=== PATIENT | male | born 1955 | race Caucasian/White ===

== ENCOUNTER 2022-05-18 13:57 | Observation (INO) | payer OTHER ==
--- NOTE | 2022-05-18 14:15 | ED ---
General Adult HPI - General Chief complaint: Shortness of Breath Stated complaint: pneumonia Time Seen by Provider: 05/18/22 14:06 Source: patient, family, RN notes reviewed Mode of arrival: ambulatory Limitations: no limitations - History of Present Illness Initial comments: Patient is a pleasant 66-year-old male presenting to the emergency Department with cough and dyspnea. Symptoms have been present close to 2 weeks. Patient did have 2 chest x-rays done as an outpatient showing pneumonia. Patient has been on 2 antibiotics. Patient has been fatigued and sweaty. No sinus congestion. No chest pain. No leg pain or leg swelling. - Related Data Allergies Allergy/AdvReac Type Severity Reaction Status Date / Time No Known Allergies Allergy Verified 05/18/22 14:02 Review of Systems ROS Statement: Those systems with pertinent positive or pertinent negative responses have been documented in the HPI. ROS Other: All systems not noted in ROS Statement are negative. Constitutional: Reports: chills. Denies: fever Eyes: Denies: eye pain ENT: Denies: ear pain Respiratory: Reports: as per HPI, cough, dyspnea Cardiovascular: Denies: chest pain Endocrine: Reports: fatigue Gastrointestinal: Denies: abdominal pain Genitourinary: Denies: dysuria Musculoskeletal: Denies: arthralgia Skin: Denies: rash Neurological: Denies: weakness Past Medical History Past Medical History: No Reported History History of Any Multi-Drug Resistant Organisms: None Reported Past Surgical History: Appendectomy, Tonsillectomy Past Psychological History: No Psychological Hx Reported Smoking Status: Current every day smoker Past Alcohol Use History: Rare Past Drug Use History: None Reported General Exam Limitations: no limitations General appearance: alert, in no apparent distress Head exam: Present: normocephalic Eye exam: Present: normal appearance Neck exam: Present: normal inspection Respiratory exam: Present: normal lung sounds bilaterally Cardiovascular Exam: Present: regular rate, normal rhythm GI/Abdominal exam: Present: soft. Absent: tenderness Extremities exam: Present: normal inspection. Absent: pedal edema, calf tenderness Neurological exam: Present: alert Psychiatric exam: Present: normal affect, normal mood Skin exam: Present: normal color Course Vital Signs 05/18/22 05/18/22 13:58 15:11 Temperature 97.9 F 98.1 F Pulse Rate 88 72 Respiratory 18 20 Rate Blood Pressure 127/72 122/72 O2 Sat by Pulse 97 97 Oximetry EKG Findings - EKG Results: EKG: interpreted by ERMD, sinus rhythm, normal axis, normal QRS, normal ST/T Medical Decision Making - Medical Decision Making Patient reevaluated and updated. Case discussed with Dr. Haas, who will admit covering hospital call. CT will be obtained. - Lab Data Result diagrams: 05/18/22 14:57 05/18/22 14:57 Lab Results 05/18/22 05/18/22 05/18/22 Range/Units 14:57 14:57 14:57 WBC 9.0 (3.8-10.6) k/uL RBC 4.34 (4.30-5.90) m/uL Hgb 13.3 (13.0-17.5) gm/dL Hct 41.5 (39.0-53.0) % MCV 95.6 (80.0-100.0) fL MCH 30.5 (25.0-35.0) pg MCHC 31.9 (31.0-37.0) g/dL RDW 12.3 (11.5-15.5) % Plt Count 388 (150-450) k/uL MPV 7.8 Neutrophils % 66 % Lymphocytes % 21 % Monocytes % 9 % Eosinophils % 2 % Basophils % 1 % Neutrophils # 5.9 (1.3-7.7) k/uL Lymphocytes # 1.9 (1.0-4.8) k/uL Monocytes # 0.8 (0-1.0) k/uL Eosinophils # 0.2 (0-0.7) k/uL Basophils # 0.1 (0-0.2) k/uL PT 11.3 (9.0-12.0) sec INR 1.1 (<1.2) APTT 25.5 (22.0-30.0) sec D-Dimer 2.32 H (<0.60) mg/L FEU Sodium 138 (137-145) mmol/L Potassium 4.3 (3.5-5.1) mmol/L Chloride 102 (98-107) mmol/L Carbon Dioxide 29 (22-30) mmol/L Anion Gap 7 mmol/L BUN 17 (9-20) mg/dL Creatinine 0.67 (0.66-1.25) mg/dL Est GFR (CKD-EPI)AfAm >90 (>60 ml/min/1.73 sqM) Est GFR (CKD-EPI)NonAf >90 (>60 ml/min/1.73 sqM) Glucose 100 H (74-99) mg/dL Plasma Lactic Acid [place] (0.7-2.0) mmol/L Calcium 9.8 (8.4-10.2) mg/dL Total Bilirubin 0.8 (0.2-1.3) mg/dL AST 21 (17-59) U/L ALT 18 (4-49) U/L Alkaline Phosphatase 92 (38-126) U/L Troponin I (0.000-0.034) ng/mL NT-Pro-B Natriuret Pep pg/mL Total Protein 7.0 (6.3-8.2) g/dL Albumin 3.8 (3.5-5.0) g/dL 05/18/22 05/18/22 05/18/22 Range/Units 14:57 14:57 14:57 WBC (3.8-10.6) k/uL RBC (4.30-5.90) m/uL Hgb (13.0-17.5) gm/dL Hct (39.0-53.0) % MCV (80.0-100.0) fL MCH (25.0-35.0) pg MCHC (31.0-37.0) g/dL RDW (11.5-15.5) % Plt Count (150-450) k/uL MPV Neutrophils % % Lymphocytes % % Monocytes % % Eosinophils % % Basophils % % Neutrophils # (1.3-7.7) k/uL Lymphocytes # (1.0-4.8) k/uL Monocytes # (0-1.0) k/uL Eosinophils # (0-0.7) k/uL Basophils # (0-0.2) k/uL PT (9.0-12.0) sec INR (<1.2) APTT (22.0-30.0) sec D-Dimer (<0.60) mg/L FEU Sodium (137-145) mmol/L Potassium (3.5-5.1) mmol/L Chloride (98-107) mmol/L Carbon Dioxide (22-30) mmol/L Anion Gap mmol/L BUN (9-20) mg/dL Creatinine (0.66-1.25) mg/dL Est GFR (CKD-EPI)AfAm (>60 ml/min/1.73 sqM) Est GFR (CKD-EPI)NonAf (>60 ml/min/1.73 sqM) Glucose (74-99) mg/dL Plasma Lactic Acid [place] 1.0 (0.7-2.0) mmol/L Calcium (8.4-10.2) mg/dL Total Bilirubin (0.2-1.3) mg/dL AST (17-59) U/L ALT (4-49) U/L Alkaline Phosphatase (38-126) U/L Troponin I <0.012 (0.000-0.034) ng/mL NT-Pro-B Natriuret Pep 42 pg/mL Total Protein (6.3-8.2) g/dL Albumin (3.5-5.0) g/dL - Radiology Data Interpreted by me: Chest x-ray shows persistent right lower lobe infiltrate. Previous x-rays reviewed with similar findings Disposition Clinical Impression: Pneumonia Disposition: ADMITTED IP TO THIS HOSP Is patient prescribed a controlled substance at d/c from ED?: No Referrals: Jose Hodge PAC [REFERRING] - 1-2 days Time of Disposition: 15:52
[2022-05-18 15:01] LABS: Basophils # (A) 0.1 k/uL (0-0.2); Basophils % (A) 1 %; Eosinophils # (A) 0.2 k/uL (0-0.7); Eosinophils % (A) 2 %; HCT 41.5 % (39.0-53.0); HGB 13.3 gm/dL (13.0-17.5); Lymphocytes # (A) 1.9 k/uL (1.0-4.8); Lymphocytes % (A) 21 %; MCH 30.5 pg (25.0-35.0); MCHC 31.9 g/dL (31.0-37.0); MCV 95.6 fL (80.0-100.0); Mean Platelet Volume 7.8; Monocytes # (A) 0.8 k/uL (0-1.0); Monocytes % (A) 9 %; Neutrophils # (A) 5.9 k/uL (1.3-7.7); Neutrophils % (A) 66 %; Platelet Count 388 k/uL (150-450); RBC 4.34 m/uL (4.30-5.90); RDW 12.3 % (11.5-15.5)
[2022-05-18 15:12] LABS: ALT 18 U/L (4-49); AST 21 U/L (17-59); African American GFR (CKD) >90 (>60 ml/min/1.73 sqM); Albumin 3.8 g/dL (3.5-5.0); Alkaline Phosphatase 92 U/L (38-126); Anion Gap 7 mmol/L; Blood Urea Nitrogen 17 mg/dL (9-20); Calcium 9.8 mg/dL (8.4-10.2); Carbon Dioxide 29 mmol/L (22-30); Chloride 102 mmol/L (98-107); Glucose 100 mg/dL (74-99); Non-African American GFR(CKD) >90 (>60 ml/min/1.73 sqM); Potassium 4.3 mmol/L (3.5-5.1); Sodium 138 mmol/L (137-145); Total Bilirubin 0.8 mg/dL (0.2-1.3)
[2022-05-18 15:19] LABS: INR 1.1 (<1.2); Partial Thromboplastin Time 25.5 sec (22.0-30.0); Prothrombin Time 11.3 sec (9.0-12.0)
--- NOTE | 2022-05-18 15:21 | XR ---
EXAMINATION TYPE: XR chest 2V DATE OF EXAM: 05/18/2022 COMPARISON: NONE HISTORY: Shortness of breath TECHNIQUE: Frontal and lateral views of the chest are obtained. FINDINGS: Scattered senescent parenchymal changes noted. Hyperinflation compatible with COPD. Infiltrate right lower lobe with small effusion. Correlate for pneumonia. Heart size is stable. Mediastinal structures are stable and grossly unremarkable. No evidence for hilar prominence. Degenerative changes dorsal spine. IMPRESSION: 1. Infiltrate right lower lobe with small effusion. Correlate for pneumonia.
[2022-05-18] MEDS ORDERED: IPRATROPIUM-ALBUTEROL 3 ML NEB INHALATION PRN (15:52)
[2022-05-18] MEDS ORDERED: PNEUMONIA PROTOCOL UTILIZED 1 EACH MISC PO PRN (15:52)
[2022-05-18] MEDS ORDERED: AZITHROMYCIN 500 MG in SODIUM CHLORIDE 0.9% 250 ML IVPB STA (15:52)
[2022-05-18] MEDS: SODIUM CHLORIDE 0.9% 1,000 ML IV SCH (16:27)
--- NOTE | 2022-05-18 16:40 | P.HPIM ---
History of Present Illness 66-year-old male came to emergency department with complaints of cough without any significant sputum production shortness of breath and right-sided pleuritic chest pain. Patient the was diagnosed with chest x-ray with pneumonia few days ago and patient was initially on azithromycin followed by Augmentin without any symptomatic improvement repeat chest x-ray showed worsening because of which patient is being admitted was started on Rocephin and azithromycin. Sputum cultures and blood cultures were ordered. Patient had elevated d-dimer may be related to pneumonia but CT angio of the chest was ordered which is still pending. REVIEW OF SYSTEMS: CONSTITUTIONAL: No fever, no malaise, no fatigue. HEENT: No recent visual problems or hearing problems. Denied any sore throat. CARDIOVASCULAR: Noorthopnea, PND, no palpitations, no syncope. PULMONARY: no hemoptysis. GASTROINTESTINAL: No diarrhea, no nausea, no vomiting, no abdominal pain. NEUROLOGICAL: No headaches, no weakness, no numbness. HEMATOLOGICAL: Denies any bleeding or petechiae. GENITOURINARY: Denies any burning micturition, frequency, or urgency. MUSCULOSKELETAL/RHEUMATOLOGICAL: Denies any joint pain, swelling, or any muscle pain. ENDOCRINE: Denies any polyuria or polydipsia. The rest of the 14-point review of systems is negative. PHYSICAL EXAMINATION: GENERAL: The patient is alert and oriented x3, not in any acute distress. Well developed, well nourished. HEENT: Pupils are round and equally reacting to light. EOMI. No scleral icterus. No conjunctival pallor. Normocephalic, atraumatic. No pharyngeal erythema. No thyromegaly. CARDIOVASCULAR: S1 and S2 present. No murmurs, rubs, or gallops. PULMONARY: Good air entry into bilateral lung olivares, no wheezing or crackles. Patient does have bronchophony on the right lower posterior lung olivares ABDOMEN: Soft, nontender, nondistended, normoactive bowel sounds. No palpable organomegaly. MUSCULOSKELETAL: No joint swelling or deformity. EXTREMITIES: No cyanosis, clubbing, or pedal edema. NEUROLOGICAL: Gross neurological examination did not reveal any focal deficits. SKIN: No rashes. Assessment and plan -Right lower lobe pneumonia with possible parapneumonic effusion and pleuritic chest pain: We will rule out pulmonary embolism with a CT, patient's antibiotics will be continued patient will be continued on Rocephin patient the will be started on doxycycline and discontinue azithromycin. Patient already failed on azithromycin in the past and doxycycline will be helpful if patient has post viral pneumonia along with atypical pneumonias -Nicotine use patient smokes half a pack of cigarettes a day counseling was provided DVT prophylaxis: Early ambulation Past Medical History Past Medical History: No Reported History History of Any Multi-Drug Resistant Organisms: None Reported Past Surgical History: Appendectomy, Tonsillectomy Past Psychological History: No Psychological Hx Reported Smoking Status: Current every day smoker Past Alcohol Use History: Rare Past Drug Use History: None Reported Medications and Allergies Home Medications Medication Instructions Recorded Confirmed Type Amoxic-Pot Clav 875-125Mg 1 tab PO BID 05/18/22 05/18/22 History [Augmentin 875-125] Azithromycin [Zithromax Z Pack] See Taper PO DAILY 05/18/22 05/18/22 History Allergies Allergy/AdvReac Type Severity Reaction Status Date / Time No Known Allergies Allergy Verified 05/18/22 16:07 Physical Exam Vitals: Vital Signs Temp Pulse Resp BP Pulse Ox 05/18/22 16:25 97.6 F 79 20 133/72 97 05/18/22 15:11 98.1 F 72 20 122/72 97 05/18/22 13:58 97.9 F 88 18 127/72 97 Intake and Output 05/18/22 05/18/22 05/18/22 06:59 14:59 22:59 Other: Weight 76.204 kg Results CBC & Chem 7: 05/18/22 14:57 05/18/22 14:57 Labs: Abnormal Lab Results - Last 24 Hours (Table) 05/18/22 05/18/22 Range/Units 14:57 14:57 D-Dimer 2.32 H (<0.60) mg/L FEU Glucose 100 H (74-99) mg/dL
--- NOTE | 2022-05-18 17:16 | CT ---
EXAMINATION TYPE: CT angio chest CT DLP: 267.7 mGycm, Automated exposure control for dose reduction was used. DATE OF EXAM: 05/18/2022 5:00 PM COMPARISON: Chest radiograph from same day. CLINICAL INDICATION:Male, 66 years old with history of Dyspnea, right lower lobe infiltrate; cough, e levated d-dimer, pneumonia TECHNIQUE/CONTRAST: CTA scan of the thorax is performed with IV Contrast, patient injected with 100 mL of Isovue 370, pul monary embolism protocol. MIP images are created and reviewed. FINDINGS: Pulmonary Artery: There is no evidence for a filling defect within the pulmonary vasculature to sugge st acute pulmonary embolism. The pulmonary artery is of normal size. Lungs/Pleura: Mild paraseptal emphysematous lungs no evidence of pneumothorax. There is a trace right pleural effusion. No evidence of focal consolidation, pleural effusion or pneumothorax. Airway: Large airways are patent. Heart: Heart is within normal limits for size.. Vasculature: No evidence of aortic aneurysm. 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 Mediastinum: No gross evidence of adenopathy. Musculoskeletal: No acute osseous abnormalities Soft Tissues: Unremarkable. Lower neck: No significant findings. Upper Abdomen: No significant findings. IMPRESSION: 1. No evidence of pulmonary embolism. 2. Focal outpouching of contrast on the inferior aspect of the aortic arch which could represent pene trating atherosclerotic ulcer versus saccular aneurysm with mural thrombus. Saccular aneurysm endovas cular surgical consultation recommended. 3. Trace right pleural effusion.
[2022-05-19] MEDS: DOXYCYCLINE 100 MG CAP PO SCH ×2 (00:04→09:19)
--- NOTE | 2022-05-19 08:11 | XR ---
EXAMINATION TYPE: XR chest 2V DATE OF EXAM: 05/19/2022 COMPARISON: 05/18/2022 HISTORY: Shortness of breath TECHNIQUE: Frontal and lateral views of the chest are obtained. FINDINGS: Scattered senescent parenchymal changes noted. Hyperinflation compatible with COPD. Right lower lobe infiltrate and small effusion persists without significant change. Heart size is stable. Mediastinal structures are stable and grossly unremarkable. No evidence for hilar prominence. Degenerative changes dorsal spine. IMPRESSION: 1. Right lower lobe infiltrate and small effusion persists without significant change.
[2022-05-19] MEDS ORDERED: AZITHROMYCIN 500 MG TAB PO SCH (09:00)
--- NOTE | 2022-05-19 10:24 | P.PN ---
Subjective Progress Note Date: 05/19/22 Principal diagnosis: chest pain Hospital Course: 66-year-old male with extensive family history of aortic aneurysms presenting with persistent nonproductive cough, shortness of breath, right-sided pleuritic chest pain after outpatient failed antibiotic therapy for pneumonia. Vital signs have been within normal limits. Laboratory workup showed elevated d-di rgaciela. CTA chest showed no PE, but showed focal outpouching of contrast on the inferior aspect of the aortic arch which could represent penetrating atherosclerotic ulcer versus secular aneurysm with mural thrombosis. Patient currently remains on antibiotics, vascular surgery also consulted. Subjective: Patient seen and examined at bedside. No acute events overnight. He claims that he still has persistent cough, but denies any further shortness of breath. Continues to have right-sided chest wall sharp pain. He denies any other chest pain, abdominal pain, nausea, vomiting, diarrhea, constipation, or urinary complaints. Pertinent positives and negatives as discussed above, a complete review of systems was performed and all other systems are negative. Vitals Signs Reviewed. General: nontoxic, no distress, appears at stated age Derm: warm, dry Head: atraumatic, normocephalic, symmetric Eyes: EOMI, no lid lag, anicteric sclera Mouth: no lip lesion, mucus membranes moist Cardiovascular: S1S2 reg, no murmur Lungs: CTA bilateral, no rhonchi, no rales , no accessory muscle use Abdominal: soft, nontender to palpation, no guarding, no appreciable organomegaly Ext: no gross muscle atrophy, no edema, no contractures Neuro: CN II-XI grossly intact, no focal neuro deficits Psych: Alert, oriented, appropriate affect Assessment and Plan: Community-acquired pneumonia, right lower lobe Trace right pleural effusion Right-sided pleuritic chest wall pain -Failed outpatient antibiotic therapy -Continue ceftriaxone and Doxy -Not requiring any supplemental oxygen -Chest wall pain could be related to MSK or nerve pain Elevated d-dimer -CTA negative for PE 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 -Patient has extensive family medical history of aneurysms -Vascular surgery consulted DVT ppx: Patient ambulatory Code status: Full code Anticipated discharge place: Home Anticipated discharge time: Today or tomorrow Objective - Vital Signs Vital signs: Vital Signs Temp 98.2 F 05/19/22 08:00 Pulse 79 05/19/22 08:00 Resp 20 05/19/22 08:00 BP 108/64 05/19/22 08:00 Pulse Ox 97 05/18/22 19:23 FiO2 Intake & Output 05/18/22 05/19/22 05/19/22 18:59 06:59 18:59 Intake Total 240 Balance 240 Weight 76.204 kg 76.204 kg Intake: Oral 240 Other: # Voids 1 - Labs CBC & Chem 7: 05/18/22 14:57 05/18/22 14:57 Labs: Abnormal Lab Results - Last 24 Hours (Table) 05/18/22 05/18/22 Range/Units 14:57 14:57 D-Dimer 2.32 H (<0.60) mg/L FEU Glucose 100 H (74-99) mg/dL Microbiology - Last 24 Hours (Table) 05/19/22 00:49 Sputum Culture - Preliminary Sputum
--- NOTE | 2022-05-19 11:18 | P.GSCN ---
History of Present Illness Consult date: 05/19/22 Reason for Consult: Possible aortic arch saccular aneurysm Requesting physician: Jose Manuel Lo History of present illness: This is a pleasant 66-year-old male who presented to the emergency department advised by his PCP for shortness of breath and cough. Patient had been seen in the outpatient setting around May 14 was told that he had pneumonia and was started on antibiotics. He continued to have worsening shortness of breath and pain with inspiration and was sent to the emergency department for further evaluation. He denies any significant past medical history. He is a daily smoker for many years. Patient had elevated d-dimer admitting workup, therefore due to shortness of breath he had a CT angiogram of the chest to rule out pulmonary embolism. CTA was negative for pulmonary embolism but reported focal outpouching of contrast on the inferior aspect of the aortic arch which could represent penetrating arthrosclerotic ulcer versus saccular aneurysm with mural thrombus. Saccular aneurysm endovascular surgical consultation recommended. Vascular surgery was consulted for the above. She denies any known history of any abdominal aortic aneurysm or aortic arch aneurysm. He does state he has significant family history of aortic aneurysms on his maternal side with maternal grandfather uncles and aunts. Denies any history of hypertension but states that he has a daily one pack per day smoker for many years. States he has had a cough with shortness of breath since mid April, no current fevers or chills. He denies any current shortness of breath or chest pain at rest. Denies any abdominal pain or pain in his back. States he does get a pain in his right rib cage when he takes a deep breath or coughs. Chest x-ray shows right lower lobe infiltrate and small effusion. He's been afebrile. Currently on IV and azithromycin and ceftriaxone as well as oral doxycycline. Review of Systems A 14 point review systems was completed all pertinent positives and negatives as stated in the HPI. Past Medical History Past Medical History: No Reported History History of Any Multi-Drug Resistant Organisms: None Reported Past Surgical History: Appendectomy, Tonsillectomy Past Anesthesia/Blood Transfusion Reactions: No Reported Reaction Past Psychological History: No Psychological Hx Reported Smoking Status: Current every day smoker Past Alcohol Use History: Rare Past Drug Use History: None Reported Medications and Allergies Home Medications Medication Instructions Recorded Confirmed Type Amoxic-Pot Clav 875-125Mg 1 tab PO BID 05/18/22 05/18/22 History [Augmentin 875-125] Azithromycin [Zithromax Z Pack] See Taper PO DAILY 05/18/22 05/18/22 History Allergies Allergy/AdvReac Type Severity Reaction Status Date / Time No Known Allergies Allergy Verified 05/18/22 16:07 Surgical - Exam Vital Signs Temp Pulse Resp BP Pulse Ox 97.9 F 88 18 127/72 97 05/18/22 13:58 05/18/22 13:58 05/18/22 13:58 05/18/22 13:58 05/18/22 13:58 General appearance: The patient is alert, oriented, appears in no acute distress. HET: Head is normocephalic and atraumatic. Pupils are equal and reactive. Neck: Supple without lymphadenopathy. Trachea midline. No audible carotid bruit. Heart: Regular. Lungs: Equal expansion, normal respiratory effort. Abdomen: Soft, nontender, nondistended. Extremities: Normal skin color and turgor. No cyanosis, rash, ulceration, clubbing, or edema. Pulses +2 bilaterally. Neurological: No focal deficits. Strength and sensation are grossly intact. Results - Labs 05/18/22 14:57 05/18/22 14:57 Abnormal Lab Results - Last 24 Hours (Table) 05/18/22 05/18/22 Range/Units 14:57 14:57 D-Dimer 2.32 H (<0.60) mg/L FEU Glucose 100 H (74-99) mg/dL Microbiology - Last 24 Hours (Table) 05/19/22 00:49 Sputum Culture - Preliminary Sputum Diabetes panel 05/18/22 Range/Units 14:57 Sodium 138 (137-145) mmol/L Potassium 4.3 (3.5-5.1) mmol/L Chloride 102 (98-107) mmol/L Carbon Dioxide 29 (22-30) mmol/L BUN 17 (9-20) mg/dL Creatinine 0.67 (0.66-1.25) mg/dL Glucose 100 H (74-99) mg/dL Calcium 9.8 (8.4-10.2) mg/dL AST 21 (17-59) U/L ALT 18 (4-49) U/L Alkaline Phosphatase 92 (38-126) U/L Total Protein 7.0 (6.3-8.2) g/dL Albumin 3.8 (3.5-5.0) g/dL Calcium panel 05/18/22 Range/Units 14:57 Calcium 9.8 (8.4-10.2) mg/dL Albumin 3.8 (3.5-5.0) g/dL Pituitary panel 05/18/22 Range/Units 14:57 Sodium 138 (137-145) mmol/L Potassium 4.3 (3.5-5.1) mmol/L Chloride 102 (98-107) mmol/L Carbon Dioxide 29 (22-30) mmol/L BUN 17 (9-20) mg/dL Creatinine 0.67 (0.66-1.25) mg/dL Glucose 100 H (74-99) mg/dL Calcium 9.8 (8.4-10.2) mg/dL Adrenal panel 05/18/22 Range/Units 14:57 Sodium 138 (137-145) mmol/L Potassium 4.3 (3.5-5.1) mmol/L Chloride 102 (98-107) mmol/L Carbon Dioxide 29 (22-30) mmol/L BUN 17 (9-20) mg/dL Creatinine 0.67 (0.66-1.25) mg/dL Glucose 100 H (74-99) mg/dL Calcium 9.8 (8.4-10.2) mg/dL Total Bilirubin 0.8 (0.2-1.3) mg/dL AST 21 (17-59) U/L ALT 18 (4-49) U/L Alkaline Phosphatase 92 (38-126) U/L Total Protein 7.0 (6.3-8.2) g/dL Albumin 3.8 (3.5-5.0) g/dL Assessment and Plan Assessment: 1. Shortness of breath likely secondary to infiltrate right lower lobe with small effusion 2. Penetrating arthrosclerotic ulcer versus saccular aneurysm with mural thrombus of aortic arch 3. One pack per day smoker for multiple years Plan: 1. Continue medical management 2. No indication for any emergent/urgent vascular surgical intervention. Recommend patient follow up outpatient with vascular surgery within a couple weeks. Thank you for this consultation. The impression and plan of care has been dictated as directed. Dr. Ponce I performed a history and examination of this patient, discussed the same with the dictator. I agree with the dictator's note ,documented as a scribe. Any additional findings or plans will be noted.
[2022-05-19 12:16] VITALS: BP 134/74; PULSE 81; RESP 18; TEMP 98
--- NOTE | 2022-05-19 14:45 | P.DS ---
Providers Date of admission: 05/18/22 15:53 Expected date of discharge: 05/19/22 Attending physician: Jaspreet Marquez MD Consults: 05/19/22 07:53 Consult Physician Routine Consulting Provider: Walt Ponec Consult Reason/Comments: Possible aortic arch saccular aneurysm noted on CTA Do you want consulting provider notified?: Yes Primary care physician: Dami Rodriguez Hospital Course: Discharge Diagnoses: Community acquired pneumonia Trace Right pleural effusion Right sided pleuritic chest wall pain elevated D dimer Aortic saccular aneurysm Hospital course: 66-year-old male with extensive family history of aortic aneurysms presenting with persistent nonproductive cough, shortness of breath, right-sided pleuritic chest pain after outpatient failed antibiotic therapy for pneumonia. Vital signs have been within normal limits. Laboratory workup showed elevated d- dimer. CTA chest showed no PE, but showed focal outpouching of contrast on the inferior aspect of the aortic arch which could represent penetrating atherosclerotic ulcer versus secular aneurysm with mural thrombosis. vascular surgery also consulted, outpatient follow up. Patient to be discharged on oral antibiotics. Vitals Signs Reviewed. General: nontoxic, no distress, appears at stated age Derm: warm, dry Head: atraumatic, normocephalic, symmetric Eyes: EOMI, no lid lag, anicteric sclera Mouth: no lip lesion, mucus membranes moist Cardiovascular: S1S2 reg, no murmur Lungs: CTA bilateral, no rhonchi, no rales , no accessory muscle use Abdominal: soft, nontender to palpation, no guarding, no appreciable organomegaly Ext: no gross muscle atrophy, no edema, no contractures Neuro: CN II-XI grossly intact, no focal neuro deficits Psych: Alert, oriented, appropriate affect Total time required for discharge including patient care coordination, and documentation: 35 mins. Patient Condition at Discharge: Stable Plan - Discharge Summary Discharge Rx Participant: No New Discharge Prescriptions: New Cefdinir 300 mg PO Q12HR #8 cap Doxycycline [Vibramycin] 100 mg PO BID #8 cap Discontinued Azithromycin [Zithromax Z Pack] See Taper PO DAILY Amoxic-Pot Clav 875-125Mg [Augmentin 875-125] 1 tab PO BID Discharge Medication List Cefdinir 300 mg PO Q12HR #8 cap 05/19/22 [Rx] Doxycycline [Vibramycin] 100 mg PO BID #8 cap 05/19/22 [Rx] Follow up Appointment(s)/Referral(s): Walt Ponce DO [STAFF PHYSICIAN] - 2 Weeks Jose Hodge PAC [REFERRING] - 1-2 days Patient Instructions/Handouts: Bacterial Pneumonia (DC) Activity/Diet/Wound Care/Special Instructions: Please see your PCP and vascular surgery as soon as possible. Discharge Disposition: HOME SELF-CARE
[2022-05-19] MEDS: SODIUM CHLORIDE 0.9% 1,000 ML IV SCH ×2 (15:57)
== END 2022-05-19 16:08 | disposition home or self-care (01) ==
LOC: EC 13:57 → 6NMEDSUR 15:53 → 3SCARD 17:23
PROVIDERS: ADMIT Family Medicine; ATTEND Family Medicine
DX: J18.9 Pneumonia, unspecified organism (principal); J90 Pleural effusion, not elsewhere classified; I71.9 Aortic aneurysm of unspecified site, without rupture; F17.210 Nicotine dependence, cigarettes, uncomplicated; R79.89 Other specified abnormal findings of blood chemistry; Z88.1 Allergy status to other antibiotic agents; Z20.822 Contact with and (suspected) exposure to COVID-19
CPT/HCPCS: 96366; 96368; 96365; 99285; 36415; 93005; 85379; 83880; 80053; 83605; 84484; 85025; 85610; 85730; 87040; 87070; 87205; 84145; 87636; 71046 ×2; 71275; G0378 ×3; J0456; J0696 ×2; Q9967